=== PATIENT | female | born 1985 | race African-American/Black ===

== ENCOUNTER 2016-08-04 03:40 | Emergency (ER) | payer OTHER ==
[~2016-08-04 03:40] MED LIST: ANTIBIOTIC PO; BP PILL; COUGH MED; HCTZ; MUSCLE RELAXER PO; NORMODYNE PO; PHENERGAN25 MG PO; PHENTERMINE H37.5 M1 PO; ROBAXIN500 MG PO; VOLTAREN50 MG PO; VOLTAREN75 MG PO; ZITHROMAX PO
[2016-08-04] MEDS ORDERED: NORVASC10 MG PO (03:53)
[2016-08-04] MEDS ORDERED: ZESTRIL10 M2 PO (03:53)
[2016-08-04] MEDS ORDERED: ZANTAC150 M1 PO (03:54)
== END 2016-08-04 04:55 | disposition home or self-care (01) ==
LOC: SED 03:40
DX: L25.9 Unspecified contact dermatitis, unspecified cause (principal); R59.0 Localized enlarged lymph nodes; I10 Essential (primary) hypertension; Z91.041 Radiographic dye allergy status
CPT/HCPCS: 99282